=== PATIENT | male | born 2000 | race Caucasian/White ===

== ENCOUNTER 2022-10-03 01:01 | Emergency (ER) | payer OTHER, BC, SELFPAY ==
[2022-10-03 01:04] VITALS: BP 139/91; PULSE 84; RESP 16; TEMP 36.7; O2SAT 99; BMI 20.2
[2022-10-03] MEDS: ONDANSETRON ODT 4 MG TAB PO (01:29)
[2022-10-03] MEDS: KETOROLAC 30 MG/ML inj IM (01:30)
[2022-10-03 01:33] LABS: Lactate* 0.7 mmol/L (0.5-1.9)
[2022-10-03 01:35] LABS: Basophils Absolute Auto 0.02 K/uL (0.00-0.30); Basophils Percent Auto 0.4 % (0.0-3.0); Eosinophils Absolute Auto 0.08 K/uL (0.00-0.50); Eosinophils Percent Auto 1.7 % (0.0-7.0); Hematocrit 44.4 % (37.0-53.0); Hemoglobin* 15.5 gm/dL (13.5-17.5); Lymphocytes Absolute Auto 1.81 K/uL (0.90-2.90); Lymphocytes Percent Auto 39.1 % (20-44); Mean Corpuscular HGB Conc 35 gm/dL (32-36); Mean Corpuscular Hemoglobin 31 pg (26-34); Mean Corpuscular Volume 89 fL (80-100); Monocytes Percent Auto 10.2 % (0.0-11.0); Neutrophils Absolute Auto 2.25 K/uL (1.7-7.0); Neutrophils Percent Auto 48.6 % (42.0-72.0); Platelet Count* 279 K/uL (140-440); RDW Coefficient of Variation % 12.6 % (11.5-15.5); Red Blood Count 4.99 m/uL (4.30-5.90); White Blood Count* 4.63 K/uL (4.50-11.00)
[2022-10-03 01:38] LABS: Appearance Urine Slightly Cloudy (Clear); Bilirubin Urine Negative (Negative); Blood Urine Negative (Negative); Color Urine Yellow (Yellow); Glucose Urine Negative (Negative); Ketones Urine Negative (Negative); Leukocyte Esterase Urine Negative (Negative); Nitrite Urine Negative (Negative); Protein Urine Negative (Negative); Specific Gravity Urine 1.015 (1.000-1.030); Urobilinogen Urine 0.2 (0.2-1.0); pH Urine 8.5 (5.0-8.5)
[2022-10-03 01:39] LABS: Slide Review Reflex No
[2022-10-03 01:44] LABS: Amorphous Sediment Urine Moderate; RBC Urine 0-2 (0-2); WBC Urine 0-2 (0-5)
[2022-10-03 01:52] LABS: Chloride* 104 mmol/L (96-114)
[2022-10-03 01:53] LABS: Potassium* 4.2 mmol/L (3.6-5.1); Sodium* 141 mmol/L (135-149)
[2022-10-03 01:55] LABS: Alkaline Phosphatase* 51 U/L (40-150); Aspartate Amino Transferase* 31 U/L (12-35); Bilirubin Direct* 0.1 mg/dL (0.0-0.5); Carbon Dioxide* 28 mmol/L (20-32); Creatinine* 0.8 mg/dL (0.5-1.5); Est. Creatinine Clearance* 134.74; Estimated Glomerular Filt Rate 128 ml/min
[2022-10-03 01:56] LABS: Alanine Aminotransferase* 24 U/L (4-50); Blood Urea Nitrogen* 13 mg/dL (5-24); Calcium* 9.8 mg/dL (8.4-10.6); Glucose* 102 mg/dL (60-115); Lipase* 38 U/L (23-300)
--- NOTE | 2022-10-03 02:08 | ED_ITS ---
HPI - General Adult General Chief complaint: Abdominal Pain Stated complaint: abdominal pain Time Seen by Provider: 10/03/22 01:03 Source: patient and family Mode of arrival: ambulatory Limitations: no limitations History of Present Illness HPI narrative: Patient is a 21-year-old male who comes in for abdominal pain that started several hours ago. It is in the central abdomen, he said felt sort of like hunger pains but not exactly. Associated with a little nausea, no vomiting or diarrhea. Normal bowel movements. No fevers, urinary symptoms. He says it is feeling better now but he felt pretty anxious about it when he was at home. He does note daily alcohol use, he tells me 3 beers his significant other who is with him indicates more. He does not feel that alcohol is a problem, but also has not ever tried to stop drinking aside from a day or 2 here there. He did have alcohol yesterday. He reports no significant medical history otherwise. He denies other drug use, quit smoking a number of years ago. Related Data Home Medications Medication Instructions Recorded Confirmed No Known Home Medications 10/03/22 10/03/22 Allergies Allergy/AdvReac Type Severity Reaction Status Date / Time No Known Drug Allergies Allergy Verified 10/03/22 01:05 Review of Systems Status of ROS: Reports: 10 or more systems reviewed and unremarkable except as noted in History and below [facility] Medical History Chronic alcohol use ?F10.90 - Alcohol use, unspecified, uncomplicated (ICD-10) Surgical History No significant past surgical history Social History Smoking Status: Never smoker Do you use any of these nicotine containing products: Smokeless Tobacco Second hand tobacco smoke exposure: No How often do you have a drink containing alcohol: 4 or more times a week How many standard drinks containing alcohol do you have on a typical day: 3 or 4 How often do you have six or more drinks on one occasion: Less than monthly AUDIT-C Alcohol total score: 6 Non-prescribed substance use: denies use Exam Narrative: Exam Narrative: Vital signs as noted above. In general, an alert, well-appearing patient. Head: Normocephalic, atraumatic. Eyes: Pupils are equal reactive. Extraocular movements are full. Conjunctivae are normal. ENT: Mucous membranes are moist. Throat is normal. Neck: Supple without lymphadenopathy. Heart: Regular rate and rhythm. No murmur or rub. Lungs: Clear bilaterally. No increased work of breathing, crackles or wheezes. Abdomen: Soft and nontender. Nondistended. Bowel sounds present. No organomegaly. Extremities: Well perfused. No edema. No calf tenderness. Pulses intact. Neurologic: Patient is alert and oriented to person and place. Speech is fluent. Face is symmetric. Moves all extremities equally. Affect: Normal. Skin: Warm and dry. Well perfused. Const: Vital Signs, click to edit/add: Vital Signs - 24 hr 10/03/22 01:04 Temperature 98.0 F Pulse Rate [Right Pulse Oximeter] 84 Respiratory Rate 16 Blood Pressure [Ri ght Upper Arm] 139/91 H Pulse Oximetry 99 Oxygen Delivery Me thod Room Air Documenting provider has reviewed patient's vital signs: yes Course Course Hospital Course: Will go ahead and check some labs, give Toradol IM as well as some Zofran. Diagnostic considerations include gastritis, peptic ulcer disease, cholecyst itis, biliary colic, kidney stone, UTI, pancreatitis, gastroenteritis. Exam is benign. We did discuss his alcohol consumption and concerns that I have around the fact that he is drinking every day. Urinalysis is unremarkable, 0-2 red cells and 0-2 white cells. My suspicion for kidney stone is rather low given the location of his abdominal pain. Labs are all normal. His white blood cell count is 4.6, hemoglobin is normal. LFTs within normal limits, CRP less than 0.5. Lipase is 38, urinalysis is entirely negative. Metabolic panel is normal as well. I have reviewed all this with him. We discussed the fact that it is possible that he is very early in some sort of process like appendicitis which may worsen. If he has persistent/worsening pain, pain that migrates to the right lower abdomen, vomiting, fever, severe pain at any point, return to the emergency department. Otherwise, I recommended trying a trial of Prilosec, with primary care follow-up if not improving. Recommended avoidance of alcohol. Vital Signs Vital signs: Initial Vital Signs Temperature 98.0 F 10/03/22 01:04 Temperature Source Temporal Artery Scan 10/03/22 01:04 Pulse Rate 84 10/03/22 01:04 Respiratory Rate 16 10/03/22 01:04 Blood Pressure 139/91 H 10/03/22 01:04 Blood Pressure Mean 107 H 10/03/22 01:04 Blood Pressure Position Sitting 10/03/22 01:04 Pulse Oximetry 99 10/03/22 01:04 Oxygen Delivery Method Room Air 10/03/22 01:04 Vital Signs Temperature 98.0 F 10/03/22 01:04 Pulse Rate 84 10/03/22 01:04 Respiratory Rate 16 10/03/22 01:04 Blood Pressure 139/91 H 10/03/22 01:04 Pulse Oximetry 99 10/03/22 01:04 Oxygen Delivery Method Room Air 10/03/22 01:04 Temperature 98.0 F 10/03/22 01:04 Pulse Rate 84 10/03/22 01:04 Respiratory Rate 16 10/03/22 01:04 Blood Pressure 139/91 H 10/03/22 01:04 Pulse Oximetry 99 10/03/22 01:04 Oxygen Delivery Method Room Air 10/03/22 01:04 Medical Decision Making Lab Data Labs: Lab Results 10/03/22 Range/Units 01:30 WBC 4.63 (4.50-11.00) K/uL RBC 4.99 (4.30-5.90) m/uL Hgb 15.5 (13.5-17.5) gm/dL Hct 44.4 (37.0-53.0) % MCV 89 (80-100) fL MCH 31 (26-34) pg MCHC 35 (32-36) gm/dL RDW Coeff of Jazlyn 12.6 (11.5-15.5) % Plt Count 279 (140-440) K/uL Neut % (Auto) 48.6 (42.0-72.0) % Lymph % (Auto) 39.1 (20-44) % Hardee % (Auto) 10.2 (0.0-11.0) % Eos % (Auto) 1.7 (0.0-7.0) % Baso % (Auto) 0.4 (0.0-3.0) % Neut # (Auto) 2.25 (1.7-7.0) K/uL Lymph # (Auto) 1.81 (0.90-2.90) K/uL Hardee # (Auto) 0.50 (0.00-0.90) K/UL Eos # (Auto) 0.08 (0.00-0.50) K/uL Baso # (Auto) 0.02 (0.00-0.30) K/uL Sodium 141 (135-149) mmol/L Potassium 4.2 (3.6-5.1) mmol/L Chloride 104 (96-114) mmol/L Carbon Dioxide 28 (20-32) mmol/L BUN 13 (5-24) mg/dL Creatinine 0.8 (0.5-1.5) mg/dL Estimated Creat Clear 134.74 Estimated GFR 128 ml/min Glucose 102 (60-115) mg/dL Lactate 0.7 (0.5-1.9) mmol/L Calcium 9.8 (8.4-10.6) mg/dL Total Bilirubin 1.0 (0.1-1.5) mg/dL Direct Bilirubin 0.1 (0.0-0.5) mg/dL AST 31 (12-35) U/L ALT 24 (4-50) U/L Alkaline Phosphatase 51 (40-150) U/L C-Reactive Protein < 0.5 L (0.5-1.0) mg/dL Total Protein 8.0 (6.0-8.3) g/dL Albumin 5.0 (3.3-5.0) g/dL Lipase 38 (23-300) U/L Urine Color Yellow (Yellow) Urine Appearance Slightly Cloudy A (Clear) Urine pH 8.5 (5.0-8.5) Ur Specific Bradley 1.015 (1.000-1.030) Urine Protein Negative (Negative) Urine Glucose (UA) Negative (Negative) Urine Ketones Negative (Negative) Urine Blood Negative (Negative) Urine Nitrite Negative (Negative) Urine Bilirubin Negative (Negative) Urine Urobilinogen 0.2 (0.2-1.0) Ur Leukocyte Esterase Negative (Negative) Urine RBC 0-2 (0-2) Urine WBC 0-2 (0-5) Ur Squamous Epith Cells None (None-Few) Amorphous Sediment Moderate A (None) Urine Bacteria None (None) Ethyl Alcohol < 0.01 L (0.01-0.03) % Discharge Plan Discharge Clinical Impression: Abdominal pain Patient Disposition: Home, Self-Care Condition: Improved Instructions: Abdominal Pain (ED) Additional Instructions: For persistent, worsening or changes in your abdominal pain such as movement to more to the right lower abdomen, new symptoms such as fever, vomiting, or severe pain of any kind, return to the emergency department for re-evaluation. Otherwise, consider starting omeprazole, 20 mg daily. This can be purchased [id number]. If not improving with these measures, primary care follow-up. Prescriptions: No Action No Known Home Medications Follow Up/Referrals: Provider,Not a Local [Primary Care Provider] - Stand Alone Forms: [employer] Info Instructions
[2022-10-03 02:10] LABS: C Reactive Protein* < 0.5 mg/dL (0.5-1.0); Ethanol* < 0.01 % (0.01-0.03)
[2022-10-03 02:36] VITALS: BP 139/91; PULSE 84; RESP 16; TEMP 36.7
[2022-10-03 02:37] VITALS: BP 128/84; PULSE 79; RESP 16; TEMP 36.7; O2SAT 99
== END 2022-10-03 02:39 | disposition home or self-care (01) ==
PROVIDERS: Emergency Provider Emergency Medicine
DX: R10.9 Unspecified abdominal pain (principal)
CPT/HCPCS: 36415; 80048; 80076; 81001; 82077; 83605; 83690; 85025; 86140; 96372; 99283; 99284; A9270; J1885

== ENCOUNTER 2022-12-11 15:14 | Outpatient (CLI) | payer OTHER, SELFPAY | END 2022-12-11 15:15 | disposition home or self-care (01) | LOC: NFLDUCREF 15:15 | PROVIDERS: PCP Family Medicine; Visit Provider Registered Nurse | DX: A69.20 Lyme disease, unspecified (principal) | CPT/HCPCS: 86618 ==

== ENCOUNTER 2023-04-11 16:49 | Emergency (ER) | payer OTHER, SELFPAY ==
[2023-04-11 17:04] VITALS: BP 132/93; PULSE 68; RESP 16; TEMP 36.6; O2SAT 98; BMI 26.5
--- NOTE | 2023-04-11 17:44 | ED.GENADULT ---
HPI - General Adult General Chief complaint: Chest Pain Stated complaint: sharp chest pain Time Seen by Provider: 04/11/23 16:55 History of Present Illness HPI narrative: This 22-year-old male comes in reporting brief episodes of chest pain in his left anterior lower chest. He states that these have been happening for the past several months on and off. When they occur they last for a 2nd or 2. He comes in today because these brief zingers of pain were occurring more frequently. He does not report any nausea, vomiting, lightheadedness, shortness of breath, diaphoresis, or exercise intolerance. He does not have any risk factors. He states that he did go to his primary doctor a few months ago and had blood an x-ray done with normal results. Related Data Previous Rx's Medication Instructions Recorded ketorolac 10 mg tablet 10 mg PO Q8H 5 days #15 tabs 04/11/23 methylprednisolone 4 mg tablets in See Rx Instructions PO .COMPLEX 04/11/23 a dose pack (Medrol (Peterson)) #21 ea Allergies Allergy/AdvReac Type Severity Reaction Status Date / Time No Known Drug Allergies Allergy Verified 12/11/22 12:58 Review of Systems Status of ROS: Reports: 10 or more systems reviewed and unremarkable except as noted in History and below Narrative: Constitutional: No fevers, no weight gain or loss. Eyes: No discharge. No vision changes. HENT: No congestion, no sore throat, no ear pain. Cardiovascular: No palpitations. Respiratory: No shortness of breath, no wheezes, no cough. Gastrointestinal: No abdominal pain, no vomiting, no diarrhea. Genitourinary: No dysuria, no hematuria. Musculoskeletal: Normal range of motion. Skin: No rashes, no pruritis. Neurological: No dizziness, weakness, sensory change, speech change. Endo/Heme/Allergies: No bruising or bleeding. No polydipsia. Pysch: no suicidality, no anxiety, no insomnia. All other systems reviewed and are negative. PFSH PFS Medical History Chronic alcohol use ?F10.90 - Alcohol use, unspecified, uncomplicated (ICD-10) Surgical History No significant past surgical history Social History Smoking Status: Never smoker Do you use any of these nicotine containing products: Smokeless Tobacco Second hand tobacco smoke exposure: No How often do you have a drink containing alcohol: 4 or more times a week How many standard drinks containing alcohol do you have on a typical day: 3 or 4 How often do you have six or more drinks on one occasion: Less than monthly AUDIT-C Alcohol total score: 6 Non-prescribed substance use: denies use Exam Narrative: Exam Narrative: Constitutional: Well-developed, well-nourished, no acute distress. HEENT: Normocephalic, atraumatic. Neck: Normal range of motion. Nontender. Supple. Heart: Regular. No murmurs. Normal rate. Intact distal pulses. Lungs: Clear to auscultation. No chest discomfort. No wheezes, rhonchi, or rales. Abdomen: Normal bowel sounds. Nontender. No rebound tenderness. Genitalia: Deferred. Back: No midline tenderness. Normal range of motion. Extremities: Normal range of motion. No injury. Skin: Intact. No rash. Warm. No erythema or pallor. Neurologic: No altered sensation. No weakness. Alert and oriented. Psychiatric: No suicidality. No anxiety or depression. No insomnia. Nursing notes and vitals signs are reviewed. Const: Vital Signs, click to edit/add: Vital Signs - 24 hr 04/11/23 17:04 Temperature 97.9 F Pulse Rate [Pulse Oximeter] 68 Respiratory Rate 16 Blood Pressure [Ri ght Upper Arm] 132/93 H Pulse Oximetry 98 Oxygen Delivery Me thod Room Air Course Vital Signs Vital signs: Initial Vital Signs Temperature 97.9 F 04/11/23 17:04 Temperature Source Temporal Artery Scan 04/11/23 17:04 Pulse Rate 68 04/11/23 17:04 Pulse Rhythm Regular 04/11/23 17:04 Respiratory Rate 16 04/11/23 17:04 Blood Pressure 132/93 H 04/11/23 17:04 Blood Pressure Mean 106 H 04/11/23 17:04 Blood Pressure Position Sitting 04/11/23 17:04 Pulse Oximetry 98 04/11/23 17:04 Oxygen Delivery Method Room Air 04/11/23 17:04 Vital Signs Temperature 97.9 F 04/11/23 17:04 Pulse Rate 68 04/11/23 17:04 Respiratory Rate 16 04/11/23 17:04 Blood Pressure 132/93 H 04/11/23 17:04 Pulse Oximetry 98 04/11/23 17:04 Oxygen Delivery Method Room Air 04/11/23 17:04 Temperature 97.9 F 04/11/23 17:04 Pulse Rate 68 04/11/23 17:04 Respiratory Rate 16 04/11/23 17:04 Blood Pressure 132/93 H 04/11/23 17:04 Pulse Oximetry 98 04/11/23 17:04 Oxygen Delivery Method Room Air 04/11/23 17:04 Medical Decision Making MDM Narrative Medical decision making narrative: This patient comes in with report of very brief episodes of chest discomfort lasting a second or two. EKG shows normal sinus rhythm without any ST or T-wave abnormalities. The patient's signs and symptoms and risk factors are not suspicious for an intrathoracic cause for his pain. More likely this is musculoskeletal or nerve mediated. I did discuss lab and imaging options with the patient and these were declined in a process of shared decision making. She is reassured with normal looking EKG and normal vital signs. Additionally at present his exam is completely normal with no pain or other symptoms. The patient is okay to be discharged home. He did receive a prescription for Toradol and Medrol Dosepak. ECG Data Attestation: I personally reviewed and interpreted this ECG as follows: Interpretation: Normal sinus rhythm. Rate is 69 beats per minute. There are no ST or T-wave abnormalities. Discharge Plan Discharge Clinical Impression: Atypical chest pain Patient Disposition: Home, Self-Care Additional Instructions: Take medication as needed and directed. Follow up with MD return if worsening. Prescriptions: New ketorolac 10 mg tablet 10 mg PO Q8H 5 Days Qty: 15 0RF methylprednisolone [Medrol (Peterson)] 4 mg tablets,dose pack See Rx Instructions .ROUTE .COMPLEX Qty: 21 0RF Rx Instructions: orally per package directions Follow Up/Referrals: Rubin Stanton MD [Primary Care Provider] - Stand Alone Forms: [employer] Info Instructions
== END 2023-04-11 17:58 | disposition home or self-care (01) ==
LOC: ED 17:58
PROVIDERS: Emergency Provider Emergency Medicine Emergency Medical Services; PCP Family Medicine
DX: R07.89 Other chest pain (principal)
CPT/HCPCS: 93005; 99284